=== PATIENT | female | born 1965 | race Caucasian/White ===

== ENCOUNTER 2017-11-25 22:21 | Emergency (ER) | payer BC, MEDICAID ==
[2017-11-25] MEDS ORDERED: Alum Hydrox/Mag Hydrox/Simeth 15 ML, Lidocaine 2% 5 ML PO ONE ×2 (23:00)
--- NOTE | 2017-11-25 23:00 | EDM.PDOC ---
ED HPI GENERAL MEDICAL PROBLEM - General Chief Complaint: ENT Problem Stated Complaint: TIGHTNESS IN THROAT Time Seen by Provider: 11/25/17 22:39 - History of Present Illness INITIAL COMMENTS - FREE TEXT/NARRATIVE: HISTORY AND PHYSICAL: History of present illness: Patient 52-year-old female presents with concern of burning in her throat. She denies chest pain shortness breath or other concern Review of systems: As per history of present illness and below otherwise all systems reviewed and negative. Past medical history: As per history of present illness and as reviewed below otherwise noncontributory. Surgical history: As per history of present illness and as reviewed below otherwise noncontributory. Social history: No reported history of drug or alcohol abuse. Family history: As per history of present illness and as reviewed below otherwise noncontributory. Physical exam: HEENT: Atraumatic, normocephalic, pupils reactive, negative for conjunctival pallor or scleral icterus, mucous membranes moist, throat clear, neck supple, nontender, trachea midline. Lungs: Clear to auscultation, breath sounds equal bilaterally, chest nontender. Heart: S1S2, regular, negative for clicks, rubs, or JVD. Abdomen: Soft, nondistended, nontender. Negative for masses or hepatosplenomegaly. Negative for costovertebral tenderness. Pelvis: Stable nontender. Genitourinary: Deferred. Rectal: Deferred. Extremities: Atraumatic, negative for cords or calf pain. Neurovascular unremarkable. Neuro: Awake, alert, oriented. Cranial nerves II through XII unremarkable. Cerebellum unremarkable. Motor and sensory unremarkable throughout. Exam nonfocal. Diagnostics: Soft tissue neck rapid strep Therapeutics: None Impression: #1 medical screening exam Definitive disposition and diagnosis as appropriate pending reevaluation and review of above. 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: Musculoskeletal History: Reports: None Neurological History: Reports: None Psychiatric History: Reports: None Endocrine/Metabolic History: Reports: None Dermatologic History: Reports: None - Infectious Disease History Infectious Disease History: Reports: Chicken Pox - Past Surgical History Female Surgical History: Reports: None Social & Family History - Family History Family Medical History: Noncontributory - Tobacco Use Smoking Status *Q: Current Every Day Smoker Years of Tobacco use: 20 Packs/Tins Daily: 0.5 - Recreational Drug Use Recreational Drug Use: No ED ROS GENERAL - Review of Systems Review Of Systems: ROS reveals no pertinent complaints other than HPI. ED EXAM, GENERAL - Physical Exam Exam: See Below (See dictation) Course - Vital Signs Last Recorded V/S: Last Vital Signs Temp 36.0 C 11/25/17 22:27 Pulse 85 11/25/17 22:27 Resp 16 11/25/17 22:27 BP 176/97 H 11/25/17 22:27 Pulse Ox 100 11/25/17 22:27 - Orders/Labs/Meds Orders: Active Orders 24 hr Category Date Time Status Neck Soft Tissue [CR] Stat Exams 11/25/17 22:58 Taken CULTURE STREP A CONFIRMATION [RM] Stat Lab 11/25/17 23:05 Results STREP SCRN A RAPID W CULT CONF [RM] Stat Lab 11/25/17 23:05 Results Meds: Medications Discontinued Medications Generic Name Dose Route Start Last Admin Trade Name Jose PRN Reason Stop Dose Admin Al Hydroxide/Mg Hydroxide 15 0 ml 11/25/17 23:00 11/25/17 23:09 ml/ Lidocaine HCl 5 ml PO 11/25/17 23:01 1 each ONETIME ONE Administration Departure - Departure Time of Disposition: 00:00 Disposition: Home, Self-Care 01 Condition: Good Clinical Impression: Encounter for medical screening examination - Discharge Information Referrals: PCP,None [Primary Care Provider] - Forms: ED Department Discharge Additional Instructions: The following information is given to patients seen in the emergency department who are being discharged to home. This information is to outline your options for follow-up care. We provide all patients seen in our emergency department with a follow-up referral. The need for follow-up, as well as the timing and circumstances, are variable depending upon the specifics of your emergency department visit. If you don't have a primary care physician on staff, we will provide you with a referral. We always advise you to contact your personal physician following an emergency department visit to inform them of the circumstance of the visit and for follow-up with them and/or the need for any referrals to a consulting specialist. The emergency department will also refer you to a specialist when appropriate. This referral assures that you have the opportunity for followup care with a specialist. All of these measure are taken in an effort to provide you with optimal care, which includes your followup. Under all circumstances we always encourage you to contact your private physician who remains a resource for coordinating your care. When calling for followup care, please make the office aware that this follow-up is from your recent emergency room visit. If for any reason you are refused follow-up, please contact the [facility] emergency department at and asked to speak to the emergency department charge nurse. Primary medical doctor 1-2 days return as needed as discussed - My Orders Last 24 Hours: My Active Orders 11/25/17 22:58 Neck Soft Tissue [CR] Stat 11/25/17 23:05 CULTURE STREP A CONFIRMATION [RM] Stat STREP SCRN A RAPID W CULT CONF [RM] Stat - Assessment/Plan Last 24 Hours: My Active Orders 11/25/17 22:58 Neck Soft Tissue [CR] Stat 11/25/17 23:05 CULTURE STREP A CONFIRMATION [RM] Stat STREP SCRN A RAPID W CULT CONF [RM] Stat
--- NOTE | 2017-11-26 13:32 | CR ---
EXAM DATE: 11/25/17 PATIENT'S AGE: 52 Patient: ARMANI BAUMAN Facility: [place], [place] Site . Site : 1965 Study: XRay ST Neck [id number] 11:33:15 PM Ordering Physician: Taylor Hadley Final Report: INDICATION: Throat tightness TECHNIQUE: Soft tissue neck radiograph 2 views COMPARISON: None FINDINGS: The airway is patent and normal. Epiglottis is normal. The retropharyngeal soft tissues are normal. No definite masses are seen. The visualized cervical spine demonstrates no significant findings. No radiopaque foreign bodies are seen. IMPRESSION: 1. Unremarkable appearance of the neck soft tissues. Dictated by: Vaibhav Aguero MD @ 11/25/2017 23:33:46 (Electronic Signature) Report Signed by Proxy. [facility]ITAL[facility]
== END 2017-11-26 00:10 | disposition home or self-care (01) ==
LOC: MW.ED 22:21
DX: Z13.89 Encounter for screening for other disorder (principal); F17.210 Nicotine dependence, cigarettes, uncomplicated; Z88.8 Allergy status to other drugs, medicaments and biological substances
CPT/HCPCS: 70360; 87081; 87880; 99284; A9270; 99282

== ENCOUNTER 2018-05-02 19:12 | Emergency (ER) | payer BC ==
--- NOTE | 2018-05-02 19:32 | EDM.PDOC ---
ED HPI GENERAL MEDICAL PROBLEM - General Chief Complaint: Genitourinary Problem Stated Complaint: BLOOD IN URINE, POSSIBLE BLADDER INFECTION Time Seen by Provider: 05/02/18 19:14 Source of Information: Reports: Patient History Limitations: Reports: No Limitations - History of Present Illness INITIAL COMMENTS - FREE TEXT/NARRATIVE: HISTORY AND PHYSICAL: History of present illness: 53-year-old female presented to emergency department with chief complaint of increased urinary frequency and hematuria. Patient states approximately 2 days ago she noticed that she was having increased urinary frequency as well as feeling of increased pressure. She initially took cranberry pills but then today her symptoms worsened and she noticed some blood in her urine. She has had a urinary tract infection before and had similar symptoms. She denies any back pain, history of stones, nausea, vomiting, fever, chills, malaise, or other signs of systemic infection. Other than this patient has been feeling her normal self. Past surgical history significant for tubal ligation 26 years ago. Has not seen a doctor for general physical in many years. States that her last period was 3 years ago. Currently denies any chest pain, palpitations, shortness of breath, syncopal episodes, focal neurologic deficits. Review of systems: As per history of present illness and below otherwise all systems reviewed and negative. Past medical history: As per history of present illness and as reviewed below otherwise noncontributory. Surgical history: As per history of present illness and as reviewed below otherwise noncontributory. Social history: No reported history of drug or alcohol abuse. Family history: As per history of present illness and as reviewed below otherwise noncontributory. Physical exam: HEENT: Atraumatic, normocephalic, pupils reactive, negative for conjunctival pallor or scleral icterus, mucous membranes moist, throat clear, neck supple, nontender, trachea midline. Lungs: Clear to auscultation, breath sounds equal bilaterally, chest nontender. Heart: S1S2, regular, negative for clicks, rubs, or JVD. Abdomen: Soft, nondistended, nontender. Negative for masses or hepatosplenomegaly. Negative for costovertebral tenderness. Pelvis: Stable nontender. Genitourinary: Deferred. Rectal: Deferred. Extremities: Atraumatic, negative for cords or calf pain. Neurovascular unremarkable. Neuro: Awake, alert, oriented. Cranial nerves II through XII unremarkable. Cerebellum unremarkable. Motor and sensory unremarkable throughout. Exam nonfocal. Diagnostics: [UA/UC] Therapeutics: Nitrofurantoin 100 mg twice a day 5 days Impression: Acute cystitis Plan: Urine was positive for acute cystitis. Patient was informed of her results. She was given a prescription for nitrofurantoin 100 mg twice a day 5 days. Patient was instructed to follow-up with a primary care provider and information was given to her. She was instructed to return to emergency department if she had any new or worsening symptoms. - Related Data Allergies Allergy/AdvReac Type Severity Reaction Status Date / Time sertraline HCl [From Zoloft] Allergy Hives Verified 05/02/18 19:22 Home Meds: Home Meds . 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 ED EXAM, GENERAL - Physical Exam Exam: See Below Course - Vital Signs Last Recorded V/S: Last Vital Signs Temp 97.3 F 05/02/18 19:22 Pulse 82 05/02/18 19:22 Resp 18 05/02/18 19:22 BP 162/103 H 05/02/18 19:22 Pulse Ox 99 05/02/18 19:22 - Orders/Labs/Meds Orders: Active Orders 24 hr Category Date Time Status CULTURE URINE [RM] Stat Lab 05/02/18 19:40 Received UA W/MICROSCOPIC [URIN] Stat Lab 05/02/18 19:07 Ordered Labs: Laboratory Tests 05/02/18 Range/Units 19:07 Urine Color YELLOW Urine Appearance HAZY Urine pH 6.0 (5.0-8.0) Ur Specific [place] 1.020 (1.001-1.035) Urine Protein 100 (NEGATIVE) mg/dL Urine Glucose (UA) NEGATIVE (NEGATIVE) mg/dL Urine Ketones NEGATIVE (NEGATIVE) mg/dL Urine Occult Blood LARGE H (NEGATIVE) Urine Nitrite POSITIVE H (NEGATIVE) Urine Bilirubin NEGATIVE (NEGATIVE) Urine Urobilinogen 0.2 (<2.0) EU/dL Ur Leukocyte Esterase MODERATE (NEGATIVE) Urine RBC TOO NUMBEROUS TO CT H (0-2/HPF) Urine WBC 25-30 (0-5/HPF) Ur Epithelial Cells FEW (NONE-FEW) Urine Bacteria 2+ H (NEGATIVE) Departure - Departure Time of Disposition: 20:07 Disposition: Home, Self-Care 01 Condition: Good Clinical Impression: Acute cystitis with hematuria - Discharge Information Referrals: PCP,None [Primary Care Provider] - Forms: ED Department Discharge Additional Instructions: My general discharge The following information is given to patients seen in the emergency department who are being discharged to home. This information is to outline your options for follow-up care. We provide all patients seen in our emergency department with a follow-up referral. The need for follow-up, as well as the timing and circumstances, are variable depending upon the specifics of your emergency department visit. If you don't have a primary care physician on staff, we will provide you with a referral. We always advise you to contact your personal physician following an emergency department visit to inform them of the circumstance of the visit and for follow-up with them and/or the need for any referrals to a consulting specialist. The emergency department will also refer you to a specialist when appropriate. This referral assures that you have the opportunity for follow-up care with a specialist. All of these measure are taken in an effort to provide you with optimal care, which includes your follow-up. Under all circumstances we always encourage you to contact your private physician who remains a resource for coordinating your care. When calling for follow-up care, please make the office aware that this follow-up is from your recent emergency room visit. If for any reason you are refused follow-up, please contact the [facility] Emergency Department at and asked to speak to the emergency department charge nurse. [facility] Primary [facility] - Women's Health [address] [place] [id number] [facility] [address] [place] [address] [facility] [address] [place] [address] Take antibiotics as prescribed. Schedule a follow-up appointment with premature care physician or STATION SUPERVISOR, numbers are above. May take Tylenol up to 4000 mg a day for fever and pain. Return to emergency department if any new or worsening symptoms. - My Orders Last 24 Hours: My Active Orders 05/02/18 19:40 CULTURE URINE [] Stat - Assessment/Plan Last 24 Hours: My Active Orders 05/02/18 19:40 CULTURE URINE [RM] Stat
== END 2018-05-02 20:40 | disposition home or self-care (01) ==
LOC: MW.ED 19:12
DX: N30.01 Acute cystitis with hematuria (principal)
CPT/HCPCS: 81001; 87086; 87088; 87186; 99283

== ENCOUNTER 2019-05-17 22:05 | Emergency (ER) | payer BC ==
--- NOTE | 2019-05-17 22:29 | EDM.PDOC ---
ED HPI GENERAL MEDICAL PROBLEM - General Chief Complaint: ENT Problem Stated Complaint: SOMETHING IN THOAT Time Seen by Provider: 05/17/19 22:13 - History of Present Illness INITIAL COMMENTS - FREE TEXT/NARRATIVE: HISTORY AND PHYSICAL: History of present illness: Patient 54-year-old female presents with concern of sore throat and foreign body sensation 1 week she's been able to eat drink has had no trouble breathing no fever no chills no other complaints she does not recall any specific episode in which she may have swallowed a foreign body Review of systems: As per history of present illness and below otherwise all systems reviewed and negative. Past medical history: As per history of present illness and as reviewed below otherwise noncontributory. Surgical history: As per history of present illness and as reviewed below otherwise noncontributory. Social history: No reported history of drug or alcohol abuse. Family history: As per history of present illness and as reviewed below otherwise noncontributory. Physical exam: HEENT: Atraumatic, normocephalic, pupils reactive, negative for conjunctival pallor or scleral icterus, mucous membranes moist, throat clear, neck supple, nontender, trachea midline. Lungs: Clear to auscultation, breath sounds equal bilaterally, chest nontender. Heart: S1S2, regular, negative for clicks, rubs, or JVD. Abdomen: Soft, nondistended, nontender. Negative for masses or hepatosplenomegaly. Negative for costovertebral tenderness. Pelvis: Stable nontender. Genitourinary: Deferred. Rectal: Deferred. Extremities: Atraumatic, negative for cords or calf pain. Neurovascular unremarkable. Neuro: Awake, alert, oriented. Cranial nerves II through XII unremarkable. Cerebellum unremarkable. Motor and sensory unremarkable throughout. Exam nonfocal. Diagnostics: Soft tissue neck x-ray rapid strep Therapeutics: None Impression: #1 medical screening exam Definitive disposition and diagnosis as appropriate pending reevaluation and review of above. throat Pain Score (Numeric/FACES): 8 - Related Data Allergies Allergy/AdvReac Type Severity Reaction Status Date / Time sertraline HCl [From Zoloft] Allergy Hives Verified 05/17/19 22:11 Home Meds: Home Meds . 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 Neurological History: Reports: None Psychiatric History: Reports: None Endocrine/Metabolic History: Reports: None Hematologic History: Reports: None Immunologic History: Reports: None Oncologic (Cancer) History: Reports: None Dermatologic History: Reports: None - Infectious Disease History Infectious Disease History: Reports: Chicken Pox - Past Surgical History Head Surgeries/Procedures: Reports: None Female Surgical History: Reports: None, Tubal Ligation Social & Family History - Family History Family Medical History: Noncontributory - Tobacco Use Smoking Status *Q: Current Every Day Smoker Years of Tobacco use: 30 Packs/Tins Daily: 1 - Caffeine Use Caffeine Use: Reports: Coffee - Recreational Drug Use Recreational Drug Use: No ED ROS GENERAL - Review of Systems Review Of Systems: ROS reveals no pertinent complaints other than HPI. ED EXAM, GENERAL - Physical Exam Exam: See Below (See dictation) Course - Vital Signs Last Recorded V/S: Last Vital Signs Temp 36.1 C 05/17/19 22:08 Pulse 82 05/17/19 22:08 Resp 18 05/17/19 22:08 BP 160/105 H 05/17/19 22:08 Pulse Ox 99 05/17/19 22:08 - Orders/Labs/Meds Orders: Active Orders 24 hr Category Date Time Status Neck Soft Tissue [CR] Stat Exams 05/17/19 22:26 Ordered STREP SCRN A RAPID W CULT CONF [RM] Stat Lab 05/17/19 22:25 Ordered Departure - Departure Time of Disposition: 22:28 Disposition: Home, Self-Care 01 Condition: Good Clinical Impression: Encounter for medical screening examination - Discharge Information Referrals: PCP,Unknown [Primary Care Provider] - Additional Instructions: The following information is given to patients seen in the emergency department who are being discharged to home. This information is to outline your options for follow-up care. We provide all patients seen in our emergency department with a follow-up referral. The need for follow-up, as well as the timing and circumstances, are variable depending upon the specifics of your emergency department visit. If you don't have a primary care physician on staff, we will provide you with a referral. We always advise you to contact your personal physician following an emergency department visit to inform them of the circumstance of the visit and for follow-up with them and/or the need for any referrals to a consulting specialist. The emergency department will also refer you to a specialist when appropriate. This referral assures that you have the opportunity for followup care with a specialist. All of these measure are taken in an effort to provide you with optimal care, which includes your followup. Under all circumstances we always encourage you to contact your private physician who remains a resource for coordinating your care. When calling for followup care, please make the office aware that this follow-up is from your recent emergency room visit. If for any reason you are refused follow-up, please contact the [facility] emergency department at and asked to speak to the emergency department charge nurse. [facility] [address] [place] [id number] ENT referral call to schedule appointment follow-up clinic as needed as discussed above return as needed - My Orders Last 24 Hours: My Active Orders 05/17/19 22:25 STREP SCRN A RAPID W CULT CONF [RM] Stat 05/17/19 22:26 Neck Soft Tissue [CR] Stat - Assessment/Plan Last 24 Hours: My Active Orders 05/17/19 22:25 STREP SCRN A RAPID W CULT CONF [RM] Stat 05/17/19 22:26 Neck Soft Tissue [CR] Stat
--- NOTE | 2019-05-17 23:12 | CR ---
INDICATION: Sore throat TECHNIQUE: Soft tissue neck 2 view. COMPARISON: Soft tissue neck 11/25/2017 FINDINGS: The airway is patent and normal. Epiglottis is normal. The retropharyngeal soft tissues are normal. No obvious masses. The visualized cervical spine demonstrates no significant findings. IMPRESSION: Unremarkable soft tissue view of the neck. Dictated by Spike Betancourt MD @ May 17 2019 11:10PM Signed by Dr. Spike Betancourt @ May 17 2019 11:11PM
== END 2019-05-17 23:47 | disposition home or self-care (01) ==
LOC: MW.ED 22:05
DX: Z13.9 Encounter for screening, unspecified (principal); Z88.8 Allergy status to other drugs, medicaments and biological substances; F17.210 Nicotine dependence, cigarettes, uncomplicated
CPT/HCPCS: 70360; 70360-26; 87081; 87880-QW; 99283-25

== ENCOUNTER 2019-12-19 18:26 | Emergency (ER) | payer BC ==
[2019-12-19] MEDS ORDERED: Sodium Chloride 0.9% 2.5 ML Syringe FLUSH PRN (18:37)
[2019-12-19] MEDS ORDERED: Sodium Chloride 0.9% 10 ML Syringe FLUSH PRN (18:37)
[2019-12-19 19:18] LABS: BLOOD UREA NITROGEN,BUN 18 mg/dL (7.0-18.0); CARBON DIOXIDE,CO2 23.2 mmol/L (21.0-32.0); CHLORIDE,CL 100 mmol/L (98-107); GLUCOSE RANDOM 116 mg/dL (74-106); SODIUM,NA 137 mmol/L (136-145)
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
--- NOTE | 2019-12-19 19:50 | CR ---
Chest: Portable view of the chest was obtained. Comparison: Prior chest x-ray of 07/10/18. Slight density within the left mid to lower lung is seen most likely due to minimal atelectasis. Lungs otherwise are clear. Heart size and mediastinum are normal. Mild scoliosis is noted within the spine. No acute osseous finding is seen. Impression: 1. Slight left midlung atelectasis. 2. Nothing acute is appreciated on portable chest x-ray. Diagnostic code #2 This report was dictated in [place] Standard Time
--- NOTE | 2019-12-19 20:25 | CT ---
Head CT Technique: Multiple axial sections through the brain were obtained. Intravenous contrast was not utilized. Comparison: No prior intracranial imaging is available. Findings: Ventricles along with basal cisterns and sulci over the convexities are within normal limits for the patient's age. No abnormal parenchymal densities are seen. No evidence of intracranial hemorrhage. No midline shift or mass effect is seen. Slight soft tissue swelling is seen within the right frontal scalp. Bone window settings were reviewed. No acute calvarial abnormality is identified. Mild mucosal thickening is seen within the maxillary and ethmoid sinuses which is most likely pre-existing chronic. No acute findings are seen within the mastoid sinuses. Impression: 1. Soft tissue swelling within the right frontal scalp. 2. Sinus findings believed to be pre-existing and chronic. 3. No acute intracranial abnormality is identified. Diagnostic code #2 This report was dictated in [place] Standard Time
--- NOTE | 2019-12-19 20:25 | CT ---
CT cervical spine Technique: Multiple axial sections through the cervical spine were obtained. Reconstructed coronal and sagittal images were reviewed. Comparison: No prior cervical spine imaging. Findings: Mild disc space narrowing is noted at C6-7. Anterior osteophytes are noted at C5-6 and C6-7. Mild posterior osteophytes are noted at C4-5 and C6-7. Degenerative change is noted between the dens and anterior arch of C1. Vertebral body heights are maintained. Sinus findings are seen which were described on head CT exam. Mild degenerative change is scattered throughout the apophyseal joints. No fracture is appreciated. No abnormal subluxation is appreciated. No bony central or bony neural foraminal stenosis is noted. Impression: 1. Mild degenerative change as described above. 2. Sinus findings are again seen described on previous head CT study. 3. Nothing acute is appreciated on CT study of the cervical spine. Diagnostic code #2 This report was dictated in [place] Standard Time
--- NOTE | 2019-12-19 20:25 | CT ---
CT orbits Technique: Multiple axial sections through the facial bones were obtained. Reconstructed coronal and sagittal images were obtained. Intravenous contrast was not utilized. Findings: Mild mucosal thickening is seen within the maxillary and ethmoid sinuses. Minimal mucosal thickening is seen within the sphenoid sinus. No air-fluid levels are seen within the paranasal sinuses. Right and left globes are symmetric. Extraocular muscles and optic nerves are symmetric. Lacrimal glands appear within normal limits. No facial bone fracture is seen. Impression: 1. Sinus findings which are most likely pre-existing and chronic as described above. 2. No additional abnormality is seen on CT study of the orbits. Diagnostic code #2 This report was dictated in [place] Standard Time
[2019-12-19] MEDS ORDERED: Morphine 2 MG/ML Syringe IVPUSH ONE (20:31)
--- NOTE | 2019-12-19 20:50 | CR ---
Pelvis and right hip: AP view of the pelvis was obtained as well as AP and frog-leg lateral views of the right hip. Slight degenerative change is noted within the lower lumbar spine. Sacroiliac joints appear within normal limits. Joint spaces within both hips are preserved. No fracture or other bony abnormality is identified. Impression: 1. Slight degenerative change within the visualized lower lumbar spine. 2. Nothing acute is seen on AP pelvis or 2 view right hip exam. Diagnostic code #2 This report was dictated in [place] Standard Time
== END 2019-12-19 21:13 | disposition home or self-care (01) ==
LOC: MW.ED 18:26
DX: R56.9 Unspecified convulsions (principal); R55 Syncope and collapse; S00.83XA Contusion of other part of head, initial encounter; S10.91XA Abrasion of unspecified part of neck, initial encounter; M25.551 Pain in right hip; F17.210 Nicotine dependence, cigarettes, uncomplicated; Z98.51 Tubal ligation status; Z79.899 Other long term (current) drug therapy; Z88.8 Allergy status to other drugs, medicaments and biological substances; W22.8XXA Striking against or struck by other objects, initial encounter
CPT/HCPCS: 36415; 70450; 70480; 71045; 72125; 73502; 80053; 81001; 83735; 83880; 84484; 85025; 93005; 96374; 99285; J2270; 99284

== ENCOUNTER 2023-11-14 16:43 | Emergency (ER) | payer SELFPAY ==
[2023-11-14] MEDS ORDERED: Sodium Chloride 0.9% 10 ML Syringe FLUSH PRN (16:46)
[2023-11-14] MEDS ORDERED: Sodium Chloride 0.9% 1,000 ML IV ONE (16:46)
[2023-11-14] MEDS ORDERED: Sodium Chloride 0.9% 2.5 ML Syringe FLUSH PRN (16:46)
[2023-11-14 16:55] LABS: BASOPHILS ABSOLUTE AUTO 0.05 K/uL (0.00-0.20); BASOPHILS PERCENT AUTO 0.5 % (0.0-1.0); EOSINOPHILS ABSOLUTE AUTO 0.11 K/uL (0.00-0.45); EOSINOPHILS PERCENT AUTO 1.2 % (0.0-6.0); HEMATOCRIT 38.2 % (37.0-47.0); HEMOGLOBIN 13.4 g/dL (12.0-16.0); IMMATURE GRAN ABSOLUTE AUTO 0.08 K/uL (0.00-0.05); IMMATURE GRAN PERCENT AUTO 0.8 % (0.0-0.4); LYMPHOCYTES ABSOLUTE AUTO 2.86 K/uL (1.00-4.80); LYMPHOCYTES PERCENT AUTO 30.1 % (24.0-44.0); MEAN CORPUSCULAR HEMOGLOBIN 32.4 pg (28.0-32.0); MEAN CORPUSCULAR HGB CONC 35.1 g/dL (32.0-36.0); MEAN CORPUSCULAR VOLUME 92.3 fL (83.0-99.0); MEAN PLATELET VOLUME 10.3 fL (9.4-12.3); MONOCYTES ABSOLUTE AUTO 0.62 K/uL (0.00-0.80); MONOCYTES PERCENT AUTO 6.5 % (0.0-8.0); NEUTROPHILS ABSOLUTE AUTO 5.78 K/uL (1.80-7.70); NEUTROPHILS PERCENT AUTO 60.9 % (41.0-71.0); PLATELET COUNT,PLT 260 K/uL (150-400); RED BLOOD CELL COUNT 4.14 M/uL (4.10-5.30)
[2023-11-14] MEDS ORDERED: LORazepam 2 MG/ML SDV ONE (16:59)
[2023-11-14] MEDS ORDERED: LORazepam 2 MG/ML SDV IVPUSH ONE (17:03)
[2023-11-14 17:26] LABS: A/G RATIO 1.4 (0.9-1.6); ALANINE AMINOTRANSFERASE,ALT 26 IU/L (14-63); ALBUMIN 4.1 g/dL (3.4-5.0); ALKALINE PHOSPHATASE 74 U/L (46-116); ASPARTATE AMNIOTRANSFERASE,AST 17 IU/L (15-37); BILIRUBIN TOTAL 0.5 mg/dL (0.2-1.0); BLOOD UREA NITROGEN,BUN 7 mg/dL (7.0-18.0); CALCIUM 9.2 mg/dL (8.5-10.1); CARBON DIOXIDE,CO2 22.8 mmol/L (21.0-32.0); CHLORIDE,CL 94 mmol/L (98-107); CREATINE KINASE,CK 80 U/L (26-308); EST CRCL DRUG DOSING (CG) 57.41 mL/min; GLUCOSE RANDOM 125 mg/dL (74-106); MAGNESIUM 1.9 mg/dL (1.8-2.4); POTASSIUM,K 3.8 mmol/L (3.5-5.1); PROTEIN TOTAL,TP 7.1 g/dL (6.4-8.2); SODIUM,NA 129 mmol/L (136-145)
[2023-11-14 17:29] LABS: ESTIMATED GFR 65 mL/min (>60)
[2023-11-14 22:58] LABS: CARBON DIOXIDE,CO2 27.6 mmol/L (21.0-32.0); CREATININE 0.7 mg/dL (0.6-1.0); EST CRCL DRUG DOSING (CG) 82.01 mL/min; POTASSIUM,K 4.1 mmol/L (3.5-5.1)
== END 2023-11-14 23:23 | disposition home or self-care (01) ==
LOC: MW.ED 16:43
DX: R56.9 Unspecified convulsions (principal); M54.50 Low back pain, unspecified; E87.1 Hypo-osmolality and hyponatremia; Z88.8 Allergy status to other drugs, medicaments and biological substances
CPT/HCPCS: 36415; 70450; 72100; 72170; 72220; 80048; 80053; 82550; 83735; 84484; 85025; 93005; 96374; 96375; 99285; J1953; J2060; J3490; J7030; J7060; 93010; 99284